=== PATIENT | female | born 1975 | race Caucasian/White ===

== ENCOUNTER → 2025-06-10 15:58 | Outpatient (CLI) | payer OTHER, SELFPAY ==
--- NOTE | 2025-06-10 15:59 | DI.MG.S_ITS ---
MM screening mammo BI: 06/10/2025. BI-RADS: 1 CLINICAL: 50-year old female for bilateral screening mammogram. Tyrer-Cuzick lifetime risk of 9.5%. No personal or first-degree family history of breast cancer. Personal history of ovarian cancer. PRIOR EXAMS 11/27/2023, 03/17/2017. MAMMOGRAPHY TECHNIQUE: 2D and 3D (tomosynthesis) digital mammographic views obtained, with additional images as needed for full coverage. Current study was also evaluated with a Computer Aided Detection (CAD) system. DENSITY B. There are scattered areas of fibroglandular density. MAMMOGRAPHY FINDINGS Bilateral: No suspicious mass, asymmetry, microcalcification, or other abnormality seen. IMPRESSION: * No evidence of malignancy. RECOMMENDATIONS Bilateral * Annual screening mammography. OVERALL ASSESSMENT CATEGORY BI-RADS-1: Negative. [employer] recommends annual screening mammography beginning at age 40 for women with average risk of breast cancer. ELECTRONICALLY SIGNED: Cata Maradiaga M.D. on 06/10/2025 at 05:24:55 PM PT Interpreting Station ID: [id number]
== END ==
PROVIDERS: PCP Family Medicine; Referring Provider Family Medicine; Visit Provider Family Medicine
DX: Z12.31 Encounter for screening mammogram for malignant neoplasm of breast (principal); Z85.43 Personal history of malignant neoplasm of ovary
CPT/HCPCS: 77063; 77067